=== PATIENT | female | born 1990 | race Caucasian/White ===

== ENCOUNTER 2017-04-06 22:12 | Inpatient (IN) | payer OTHER ==
[~2017-04-06] VITALS: Ht 170.2 cm; Wt 92.5 kg
[2017-04-06 23:49] LABS: HEMOGLOBIN 10.3 gm/dl (12.3-15.3); RED BLOOD COUNT 3.61 M/UL (4.00-5.10); WHITE BLOOD COUNT 13.3 K/UL (4.5-11.0)
[2017-04-08 03:22] LABS: HEMOGLOBIN 9.2 gm/dl (12.3-15.3)
[2017-04-08] MEDS ORDERED: COLACE 100MG C100 MG PO (15:57)
== END 2017-04-08 16:06 | disposition home or self-care (01) | DRG 775 ==
LOC: GENOP 22:12 → OB 04-07 00:21
PROVIDERS: ADMIT Obstetrics & Gynecology
PROC: 10E0XZZ Delivery of Products of Conception, External Approach (ICD-10-PCS; principal; 2017-04-07)
PROC: 3E0234Z Introduction of Serum, Toxoid and Vaccine into Muscle, Percutaneous Approach (ICD-10-PCS; 2017-04-08)
DX: O80 Encounter for full-term uncomplicated delivery (principal); Z3A.38 38 weeks gestation of pregnancy; Z37.0 Single live birth; Z23 Encounter for immunization
CPT/HCPCS: 36415; 51702; 81001; 82800; 85014; 85018; 85025; 90707; 90715; J2300; J2405; J2590; J2795; J3010; J3430; J7120